=== PATIENT | male | born 1995 | race American Indian/Alaskan Native ===

== ENCOUNTER 2019-06-07 09:05 | Emergency (ER) | payer SELFPAY ==
[2019-06-07 09:10] VITALS: BP 128/81
== END 2019-06-07 11:47 | disposition left against medical advice (07) ==
LOC: ED 09:05
DX: S61.411A Laceration without foreign body of right hand, initial encounter (principal); Z53.21 Procedure and treatment not carried out due to patient leaving prior to being seen by health care provider